=== PATIENT | male | born 1980 | race Caucasian/White ===

== ENCOUNTER 2016-08-19 20:15 | Emergency (ER) | payer BC, SELFPAY ==
[2016-08-19] MEDS ORDERED: ASPIRIN TABLET 325 MG TAB ONE (20:20)
[2016-08-19] MEDS ORDERED: NITROGLYCERIN 0.4 MG 25 EA TAB SL ONE (20:20)
[2016-08-19] MEDS ORDERED: ASPIRIN TABLET 325 MG TAB PO ONE (20:36)
[2016-08-19] MEDS ORDERED: LIDOCAINE VIS-MYLANTA 30 ML UD PO ONE ×2 (20:51)
[2016-08-19] MEDS ORDERED: NITROGLYCERIN 2% 1 GM UD TOP ONE ×2 (21:07)
[2016-08-19] MEDS ORDERED: CLOPIDOGREL 75 MG TAB PO ONE (21:09)
[2016-08-19] MEDS ORDERED: ENOXAPARIN SODIUM 100 MG/ML SYG SUBCU ONE (21:17)
[2016-08-19] MEDS ORDERED: ENOXAPARIN SODIUM 60 MG/0.6 ML SYG SUBCU ONE (21:18)
--- NOTE | 2016-08-19 21:19 | RAD ---
EXAM DESCRIPTION: Chest,2 Views CLINICAL HISTORY: Cardiac chest pain COMPARISON: None FINDINGS: Cardiac silhouette is within normal limits. EKG leads project over the chest. There is no focal parenchymal or pleural disease. There is no acute osseous process visualized. IMPRESSION: No evidence of acute cardiopulmonary disease. Electronically signed by: Jose A Hopson MD 08/19/2016 7:19 PM PST
--- NOTE | 2016-08-19 21:20 | ED.PDOC ---
History of Present Illness - General Chief Complaint: Chest Pain/NH Stated Complaint: chest pain Time Seen by Provider: 08/19/16 20:22 Source: patient Exam Limitations: no limitations - History of Present Illness Initial Comments: the patient is a 36-year-old male presenting to the emergency room secondary to intermittent chest painover the last 2 days. He does have a history of some high blood pressure along with morbid obesity and uncontrolled reflux issues in the past. He has had about 4 episodes of chest pain over the last 2 days each lasting approximately an hour and mostly coinciding with the time periods after he has eaten. Most of the chest pain is substernal with radiation to the right shoulder. No real shortness of breath. No numbness of his arm. There is some radiation up to the right jaw. No palpitations. No previous cardiac history. He does have a positive family history for coronary artery disease however. The only daily medication that he takes with any regularity as Tums. Timing/Duration: 24 hours Severity: moderate Improving Factors: rest Worsening Factors: nothing Allergies/Adverse Reactions: Allergies NO KNOWN ALLERGY Allergy (Verified 08/19/16 20:26) Home Medications: Ambulatory Orders NK [NK] 08/19/16 Review of Systems - Review of Systems Constitutional: States: no symptoms reported EENTM: States: no symptoms reported Respiratory: States: no symptoms reported Cardiology: States: chest pain Gastrointestinal/Abdominal: States: abdominal pain Genitourinary: States: no symptoms reported Musculoskeletal: States: no symptoms reported Skin: States: no symptoms reported Neurological: States: no symptoms reported Endocrine: States: no symptoms reported All other Systems: No Change from Baseline Past Medical History (General) - Patient Medical History Hx Hypertension: Yes Hx Diabetes: No Surgical History: no surgical history - Vaccination History Hx Influenza Vaccination: No - Triage Comment ED Triage Comment: pain for past hour described as pressure to middle of chest and rt side. Family Medical History - Family History Father Family History: Unknown Physical Exam - Physical Exam General Appearance: Alert, Comfortable, No apparent distress Eye Exam: bilateral normal Ears, Nose, Throat: hearing grossly normal, normal ENT inspection, normal pharynx Neck: non-tender, full range of motion, supple, normal inspection Respiratory: chest non-tender, lungs clear, normal breath sounds, no respiratory distress, no accessory muscle use Cardiovascular/Chest: normal peripheral pulses, regular rate, rhythm, no edema Peripheral Pulses: radial,right: 2+, radial,left: 2+, dorsalis pedis,right: 2+, dorsalis pedis,left: 2+, posterior tibialis,right: 2+, posterior tibialis,left: 2+ Gastrointestinal/Abdominal: normal bowel sounds, soft, other - mild epigastric discomfort palpation. No rebound or peritoneal signs. He is morbidly obese. Rectal Exam: deferred Back Exam: normal inspection, no CVA tenderness Extremity: normal range of motion, non-tender, normal inspection, no pedal edema , normal capillary refill Neurologic: alert, normal mood/affect, oriented x 3 Skin Exam: normal color Comments: Vital Signs - 24 hr 08/19/16 08/19/16 20:23 20:31 Temperature 97.5 F L Pulse Rate [ 81 82 Apical] Respiratory 18 Rate Blood Pressure 155/96 [Right Arm] O2 Sat by Pulse 96 Oximetry Progress - Progress Progress: 08/19/16 21:21 the patient is a 36-year-old male presenting with chest pain that was clinically more consistent with esophagitis and gastritis issues however the patient does appear to be having a non-ST elevation myocardial infarction. The patient will be transferred for higher level of care. The patient has received a dose of Lovenox, Plavix, aspirin and is receiving oxygen and nitroglycerin in the form of Nitropaste. Opiates will be used if he is having continued pain and blood pressures allow. - Results/Orders Results/Orders: Laboratory Tests 08/19/16 20:30 WBC 10.8 RBC 5.06 Hgb 15.2 Hct 43.3 MCV 85.5 MCH 30.0 MCHC 35.0 RDW 13.5 Plt Count 130 MPV 10.0 Absolute Neuts (auto) 6.50 Absolute Lymphs (auto) 3.50 H Absolute Monos (auto) 0.60 Absolute Eos (auto) 0.10 Absolute Basos (auto) 0.10 Neutrophils % 60.7 Lymphocytes % 32.4 Monocytes % 5.3 Eosinophils % 1.0 Basophils % 0.6 PT 11.3 INR 1.000 PTT (SP) 37.6 H Sodium 137 Potassium 4.0 Chloride 100 L Carbon Dioxide 31 Anion Gap 10.0 L BUN 14 Creatinine 0.86 BUN/Creatinine Ratio 16.3 Random Glucose 121 H Serum Osmolality 275.5 Calcium 9.1 Total Bilirubin 0.6 AST 21 ALT 22 Alkaline Phosphatase 44 Creatine Kinase 233 H* CK-MB (CK-2) 6.7 H* CK-MB (CK-2) % 2.88 Troponin I 0.40 H* B-Natriuretic Peptide 9.6 Serum Total Protein 7.4 Albumin 4.4 Globulin 3.0 Albumin/Globulin Ratio 1.5 EKG shows normal sinus rhythm at a rate of 77 bpm. [place] is normal. Poor R- wave progression in anterior leads. No acute ST segment changes concerning for ischemia. Chest x-ray appears benign. Limited single view due to large body habitus. Departure - Departure Clinical Impression: Non-ST elevated myocardial infarction Disposition: Transfer to Hospital Home Medications: Ambulatory Orders NK [NK] 08/19/16 Transfer to Outside Facility - Transfer Information Accepting Provider:: dr leigh Accepting Facility: [facility] Reason for Transfer: required specialist not available
[2016-08-19 22:26] VITALS: BP 163/105; TEMP 98.4; O2SAT 98
== END 2016-08-19 22:38 | disposition short-term general hospital (02) ==
LOC: ER 20:15
DX: I21.4 Non-ST elevation (NSTEMI) myocardial infarction (principal); I10 Essential (primary) hypertension; E66.01 Morbid (severe) obesity due to excess calories
CPT/HCPCS: 71020; 80053; 82550; 82553; 83880; 84484; 85025; 85610; 85730; 93005; J1650

== ENCOUNTER 2017-03-02 13:45 | Emergency (ER) | payer BC, SELFPAY ==
--- NOTE | 2017-03-02 13:51 | ED.PDOC ---
History of Present Illness - General Chief Complaint: Chest Pain/NM Stated Complaint: chest pain Time Seen by Provider: 03/02/17 13:51 Source: patient Exam Limitations: no limitations - History of Present Illness Initial Comments: Ramon Hughes 36 y/o male stated that he had on and off sharp chest pains since yesterday becoming more frequent and intense and this morning while working an his car had onther one decided to come to ER.Had cardiac stent placed in posterior left ventricular branch of circumflex coronary arteryin Timing/Duration: intermittent - since yesterday, other Severity/Quality: sharp Location: central Chest Pain Radiation: no radiation Activities at Onset: rest Prior Chest Pain/Cardiac Workup: cardiac cath, heart attack - NSTEMI,cardiac stent Improving Factors: nothing Worsening Factors: nothing Nitro Today/Relief: 0.4 mg x 1 Aspirin Treatment Today: 325 mg x 1 Associated Symptoms: denies symptoms Allergies/Adverse Reactions: Allergies NO KNOWN ALLERGY Allergy (Verified 08/19/16 20:26) Home Medications: Ambulatory Orders Aspirin [Aspirin Adult Low Dose] 81 mg PO DAILY 03/02/17 Atorvastatin Calcium [Lipitor] 40 mg PO BEDTIME 03/02/17 Carvedilol 6.25 mg PO BID 03/02/17 Lisinopril 5 mg PO DAILY 03/02/17 Nitroglycerin 0.4 mg Tab [Nitrostat] 0 ea SL .Q5M PRN #1 bottle 03/02/17 Ticagrelor [Brilinta] 90 mg PO BID 03/02/17 Review of Systems - Review of Systems Constitutional: States: no symptoms reported EENTM: States: no symptoms reported Respiratory: States: no symptoms reported Cardiology: States: see HPI Gastrointestinal/Abdominal: States: no symptoms reported Genitourinary: States: no symptoms reported Musculoskeletal: States: no symptoms reported Skin: States: no symptoms reported Past Medical History (General) - Patient Medical History Hx Cardiac Disorders: Yes - NSTEMI-7 months ago Hx Hypertension: Yes Hx Diabetes: No Surgical History: no surgical history - Vaccination History Hx Influenza Vaccination: No - Social History Hx Tobacco Use: No Hx Chewing Tobacco Use: No - Activities of Daily Living Patient Lives Alone: No - family Family Medical History - Family History Father Family History: Unknown Hx Family Stroke: Yes - dad Hx Cardiac Disease: Yes - dad Hx Family Cancer: Yes - hodgkins lymphoma Physical Exam - Physical Exam General Appearance: Alert, Comfortable, No apparent distress Eyes, Ears, Nose, Throat Exam: PERRL/EOMI, normal ENT inspection Neck: non-tender, full range of motion, supple, normal inspection Respiratory: chest non-tender, lungs clear Cardiovascular/Chest: normal peripheral pulses, regular rate, rhythm, no murmur Peripheral Pulses: radial,right: 1+, radial,left: 1+ Gastrointestinal/Abdominal: normal bowel sounds, non tender, soft, no organomegaly Extremity: normal range of motion, non-tender, normal inspection Neurologic: no motor/sensory deficits, alert, normal mood/affect, oriented x 3 Skin Exam: normal color, warm/dry Lymphatic: no adenopathy Progress - Results/Orders Results/Orders: Laboratory Tests 03/02/17 03/02/17 03/02/17 13:52 14:10 14:10 WBC 6.8 RBC 4.64 L Hgb 13.8 L Hct 40.2 L MCV 86.6 MCH 29.7 MCHC 34.4 RDW 13.5 Plt Count 129 L MPV 9.6 Absolute Neuts (auto) 4.50 Absolute Lymphs (auto) 1.80 Absolute Monos (auto) 0.40 Absolute Eos (auto) 0.10 Absolute Basos (auto) 0.00 Neutrophils % 66.1 Lymphocytes % 26.8 Monocytes % 5.7 Eosinophils % 0.9 L Basophils % 0.5 PT 12.7 H INR 1.130 PTT (SP) 35.2 D-Dimer, Quantitative < 200 Sodium 140 Potassium 4.2 Chloride 103 Carbon Dioxide 29 Anion Gap 12.2 BUN 12 Creatinine 0.79 BUN/Creatinine Ratio 15.2 Random Glucose 93 Serum Osmolality 278.9 Calcium 9.2 Magnesium 2.0 Total Bilirubin 1.0 Direct Bilirubin 0.1 Indirect Bilirubin 0.9 H AST 19 ALT 19 Alkaline Phosphatase 44 Creatine Kinase 157 CK-MB (CK-2) 3.3 CK-MB (CK-2) % Not Reportable Troponin I < 0.02 Serum Total Protein 7.1 Albumin 4.2 Urine Color Urine Appearance Urine pH Ur Specific [place] Urine Protein Urine Glucose (UA) Urine Ketones Urine Blood Urine Nitrite Urine Bilirubin Urine Urobilinogen Ur Leukocyte Esterase Urine RBC Urine WBC Ur Epithelial Cells Urine Bacteria Urine Opiates Screen Negative Urine Barbiturates Negative Ur Phencyclidine Scrn Negative U Amphetamin/Meth Scrn Negative U Benzodiazepines Scrn Negative U Cocaine Metab Screen Negative U Cannabinoids Screen Negative 03/02/17 14:45 WBC RBC Hgb Hct MCV MCH MCHC RDW Plt Count MPV Absolute Neuts (auto) Absolute Lymphs (auto) Absolute Monos (auto) Absolute Eos (auto) Absolute Basos (auto) Neutrophils % Lymphocytes % Monocytes % Eosinophils % Basophils % PT INR PTT (SP) D-Dimer, Quantitative Sodium Potassium Chloride Carbon Dioxide Anion Gap BUN Creatinine BUN/Creatinine Ratio Random Glucose Serum Osmolality Calcium Magnesium Total Bilirubin Direct Bilirubin Indirect Bilirubin AST ALT Alkaline Phosphatase Creatine Kinase CK-MB (CK-2) CK-MB (CK-2) % Troponin I Serum Total Protein Albumin Urine Color Yellow Urine Appearance Clear Urine pH 7.0 Ur Specific [place] 1.020 Urine Protein Negative Urine Glucose (UA) Negative Urine Ketones Negative Urine Blood Negative Urine Nitrite Negative Urine Bilirubin Negative Urine Urobilinogen 1.0 Ur Leukocyte Esterase Negative Urine RBC 0 Urine WBC 0-1 Ur Epithelial Cells 5-10 Urine Bacteria 0 Urine Opiates Screen Urine Barbiturates Ur Phencyclidine Scrn U Amphetamin/Meth Scrn U Benzodiazepines Scrn U Cocaine Metab Screen U Cannabinoids Screen Discuss admission and result of his blood work ekg CXR which were all normal and stating that he is chest pain free wants to go home and 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 Vallecillo he will call his office in am - EKG/XRAY/CT EKG: Sinus, nonspecific ST T wave Chg - anterior leads Comments: Heart rate-58 Departure - Departure Clinical Impression: Chest pain Qualifiers: Chest pain type: unspecified Qualified Code(s): R07.9 - Chest pain, unspecified Time of Disposition: 17:51 Disposition: Discharge to Home or Self Care Condition: Fair Departure Forms: ED Discharge - Pt. Copy, Patient Portal Self Enrollment Instructions: DI for Chest Pain Referrals: Burak Duval MD [Active Staff] - 1-2 Weeks Prescriptions: Nitroglycerin 0.4 mg Tab [Nitrostat] 0 ea SL .Q5M PRN #1 bottle PRN Reason: Chest Pain Home Medications: Ambulatory Orders Aspirin [Aspirin Adult Low Dose] 81 mg PO DAILY 03/02/17 Atorvastatin Calcium [Lipitor] 40 mg PO BEDTIME 03/02/17 Carvedilol 6.25 mg PO BID 03/02/17 Lisinopril 5 mg PO DAILY 03/02/17 Nitroglycerin 0.4 mg Tab [Nitrostat] 0 ea SL .Q5M PRN #1 bottle 03/02/17 Ticagrelor [Brilinta] 90 mg PO BID 03/02/17 Additional Instructions: Continue with current medications;Return to emergency room as needed;Call Dr. Vallecillo in am for follow up 03/03/2017
[2017-03-02] MEDS: SODIUM CHLORIDE 0.9% (FLUSH) 10 ML SYG IV PRN (14:00)
[2017-03-02] MEDS: NITROGLYCERIN 0.4 MG 25 EA TAB SL ONE (14:04)
--- NOTE | 2017-03-02 14:10 | RAD ---
EXAM DESCRIPTION: Chest,1 View CLINICAL HISTORY: Chest pain FINDINGS/ IMPRESSION: Comparison 08/19/2016 Normal cardiomediastinal silhouette. No edema, infiltrates or effusions. No pneumothorax Electronically signed by: Paul Sullivan MD 03/02/2017 2:09 PM CDT
[2017-03-02] MEDS: LACTATED RINGERS 1,000 ML IVS ONE (14:13)
[2017-03-02] MEDS: ASPIRIN TABLET 325 MG TAB PO ONE (14:16)
[2017-03-02 16:05] VITALS: TEMP 97.2
[2017-03-02 18:17] VITALS: BP 125/79; O2SAT 99
== END 2017-03-02 18:07 | disposition home or self-care (01) ==
LOC: ER 13:45
DX: R07.9 Chest pain, unspecified (principal); I25.2 Old myocardial infarction; I10 Essential (primary) hypertension; Z82.49 Family history of ischemic heart disease and other diseases of the circulatory system; Z79.82 Long term (current) use of aspirin; Z79.899 Other long term (current) drug therapy; Z98.61 Coronary angioplasty status
CPT/HCPCS: 36415; 71010; 80048; 80076; 80307; 81001; 82550; 82553; 84484; 85025; 85379; 85610; 85730; 93005; J7120

== ENCOUNTER → 2019-01-10 | Outpatient (CLI) | payer BC | LOC: GMAJS 15:06 | PROVIDERS: ATTEND Physician Assistant | DX: R07.82 Intercostal pain (principal); R07.89 Other chest pain ==